=== PATIENT | male | born 1995 | race Two or more races ===

== ENCOUNTER 2017-08-25 18:46 | Emergency (ER) | payer OTHER ==
[2017-08-25 18:56] VITALS: BP 145/75; BMI 21.6
[2017-08-25] MEDS ORDERED: MORPHINE SULFATE INJ 10 MG IVP ONE (18:57)
[2017-08-25 19:05] LABS: BASOPHILS # (AUTO) 0.1 X10^3/uL (0.0-0.1); BASOPHILS % (AUTO) 0.5 % (0.2-1.0); EOSINOPHILS # (AUTO) 0.4 x10^3/uL (0.0-0.2); EOSINOPHILS % (AUTO) 1.7 % (0.9-2.9); HEMATOCRIT 37.3 % (42.0-54.0); HEMOGLOBIN 12.5 g/dL (13.5-18.0); LYMPHOCYTES # (AUTO) 6.1 X10^3/uL (1.3-2.9); LYMPHOCYTES % (AUTO) 27.4 % (21.0-51.0); MEAN CORPUSCULAR HEMOGLOBIN 28.6 pg (27.0-34.0); MEAN CORPUSCULAR HGB CONC 33.4 g/dL (33.0-35.0); MEAN CORPUSCULAR VOLUME 85.5 fL (80.0-100.0); MEAN PLATELET VOLUME 7.6 fL (7.4-11.0); MONOCYTES # (AUTO) 1.1 x10^3/uL (0.3-0.8); MONOCYTES % (AUTO) 4.9 % (0.0-13.0); NEUTROPHILS # (AUTO) 14.5 x10^3/uL (2.2-4.8); NEUTROPHILS % (AUTO) 65.5 % (42.0-75.0); PLATELET COUNT 281 X10^3/uL (150.0-450.0); RED BLOOD COUNT 4.36 X10^6/uL (4.7-6.0); RED CELL DISTRIBUTION WIDTH 13.9 % (11.6-16.5)
[2017-08-25] MEDS ORDERED: ADACEL TDaP IM ONE ×2 (19:06→19:07)
[2017-08-25] MEDS ORDERED: ANCEF VIAL 1 GM ONE (19:10)
[2017-08-25] MEDS ORDERED: NS 50 ML IV 50 ML IV ONE (19:10)
[2017-08-25] MEDS ORDERED: ANCEF VIAL 1 GM 2 GM in NS 100 ML IV 100 ML IV ONE (19:13)
[2017-08-25 19:26] LABS: PLATELET MORPHOLOGY COMMENT NORMAL (NORMAL); WHITE BLOOD COUNT 22.2 X10^3/uL (3.6-10.0)
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
--- NOTE | 2017-08-25 19:54 | RAD ---
Left foreleg series, single view Indication: Fracture. Comparison: None available. Impression: There is a significantly comminuted and open fracture of the midshaft of the tibia with moderate late ral angulation of the major distal fracture fragment and resultant soft tissue gas. There is also a m oderately displaced transverse fracture through the proximal fibular diaphysis. The knee and ankle delmy ints are grossly intact. Reported By:
--- NOTE | 2017-08-25 19:55 | RAD ---
Left humerus series, single view Indication: Trauma Comparison: None available. Impression: There is a comminuted, segmental fracture of the midshaft of the femur with moderate lateral angulati on of the major distal fracture fragment. There is surrounding soft tissue swelling. The knee appears grossly intact. Reported By:
--- NOTE | 2017-08-25 20:03 | RAD ---
Portable chest Indication: Trauma Comparison: None available. Impression: Heart size is normal. The lungs are grossly clear without obvious pneumothorax. No displaced fracture s are seen within the chest. Reported By:
== END 2017-08-25 19:25 | disposition short-term general hospital (02) ==
LOC: ER 18:49
DX: S82.202A Unspecified fracture of shaft of left tibia, initial encounter for closed fracture (principal); S72.302A Unspecified fracture of shaft of left femur, initial encounter for closed fracture; M25.552 Pain in left hip; V89.2XXA Person injured in unspecified motor-vehicle accident, traffic, initial encounter
CPT/HCPCS: 36415; 71010; 73552; 73590; 85025; 86901; 90471; 96365; 96374; 96375; 99284; 99285; A4222; J0690